=== PATIENT | female | born 1950 | race Two or more races ===

== ENCOUNTER 2020-08-11 07:30 | Inpatient (IN) | payer OTHER ==
[~2020-08-11] VITALS: Ht 162.6 cm; Wt 63.5 kg
[2020-08-11] MEDS ORDERED: EVISTA60 MG PO (10:39)
[2020-08-11] MEDS ORDERED: SIMVASTATIN10 MG PO (10:40)
[2020-08-11] MEDS ORDERED: ZANAFLEX2 M1 PO (10:40)
[2020-08-11] MEDS ORDERED: MULTIPLE VITAM1 EAC2 PO (10:41)
[2020-08-18] MEDS ORDERED: FOLINIC-PLUS C1 EACH (08:56)
[2020-08-18] MEDS ORDERED: CELECOXIB200 MG (08:56)
[2020-08-18] MEDS ORDERED: MELATONIN10 MG (08:56)
[2020-08-18] MEDS ORDERED: KETOTIFEN FUMARA5 ML (08:57)
[2020-08-18] MEDS ORDERED: WAL-FEX ALLERG180 MG (08:57)
[2020-08-18] MEDS ORDERED: FLONASE16 GM (08:57)
[2020-08-21] MEDS ORDERED: MIRALAX17 GM PO (08:43)
[2020-08-21] MEDS ORDERED: PERCOCET 5-3251 EACH PO (08:43)
== END 2020-08-22 10:25 | disposition home or self-care (01) | DRG 355 ==
LOC: EDSTATUS 07:30 → ADM 07:30 → O/R 08-18 06:02 → SURG 08-18 06:02 → SURH 08-18 07:00 → SURG 08-18 16:35
PROVIDERS: ADMIT Surgery; ATTEND Surgery
PROC: 0WUF4JZ Supplement Abdominal Wall with Synthetic Substitute, Percutaneous Endoscopic Approach (ICD-10-PCS; 2020-08-18)
PROC: 0WUF4JZ Supplement Abdominal Wall with Synthetic Substitute, Percutaneous Endoscopic Approach (ICD-10-PCS; principal; 2020-08-18 07:00)
DX: K43.0 Incisional hernia with obstruction, without gangrene (principal); K42.0 Umbilical hernia with obstruction, without gangrene; E78.49 Other hyperlipidemia